=== PATIENT | female | born 1985 | race African-American/Black ===

== ENCOUNTER 2016-11-21 10:36 | Day surgery (SDC) | payer BC ==
[~2016-11-21 10:36] MED LIST: BUPIVACAINE-EPI 0.5%-1:200000 50 ML VIAL. ONE; HYDROmorphone 2 MG/ML VIAL IV PRN; IV RINGERS,LACTATED 1000ML 1,000 ML IV SCH; LIDOCAINE 1% PF 2 ML VIAL. ID PRN; LIDOCAINE 2% PF Vial for OR 5 ML VIAL. ONE; MORPHINE SULFATE 2 MG/ML DISP.SYRIN. IV PRN; ONDANSETRON PF 4 MG/2 ML VIAL. IV PRN; PROCHLORPERAZINE 10 MG/2 ML VIAL. IV PRN; PROPOFOL 20 ML IV ONE; fentaNYL PF VIAL 100 MCG/2 ML VIAL IV PRN
[2016-11-21] MEDS ORDERED: LAMO25TA PO (11:01)
[2016-11-21] MEDS ORDERED: IBUP-1027 PO (11:05)
[2016-11-21 11:20] LABS: NEG OBC UR NEG; POS OBC UR POS
[2016-11-21] MEDS ORDERED: SEVOFLURANE UP TO 15 MINUTES. IH ONE (12:46)
[2016-11-21] MEDS ORDERED: ONDANSETRON PF 4 MG/2 ML VIAL. ONE (12:46)
[2016-11-21] MEDS ORDERED: DEXAMETHASONE SOD PHOS 20 MG/5 ML VIAL. ONE (12:46)
[2016-11-21] MEDS ORDERED: KETOROLAC 60 MG/2 ML INJ FOR OR. ONE (13:03)
[2016-11-21] MEDS ORDERED: HYDR-971 PO (13:07)
[2016-11-21] MEDS ORDERED: NAPR500T PO (13:07)
--- NOTE | 2016-11-21 13:15 | PDOC ---
BRIEF OPERATIVE NOTE Date: Nov 21, 2016 Pre-Op Diagnosis Cervical dysplasia Post-Op Diagnosis Same Procedure Performed LEEP cone and ecc Surgeon Desiree Anesthesia Type: General Blood Loss 5cc Specimens Obtained Leep cone and ECC Complications None MARIA DE JESUS CHAMPAGNE MD Nov 21, 2016 13:14
[2016-11-21] MEDS ORDERED: HYDROcodone/APAP 5/325MG 1 TAB TABLET PO PRN (13:30)
[2016-11-21 13:40] VITALS: BP 108/77
--- NOTE | 2016-11-21 14:20 | OP ---
DATE OF SURGERY: 11/21/2016 DATE OF SERVICE: 11/21/2016 PREOPERATIVE DIAGNOSIS: Cervical dysplasia. POSTOPERATIVE DIAGNOSIS: Cervical dysplasia. PROCEDURE: LEEP/cone and ECC. SURGEON: Maria De Jesus Ramírez MD DEVELOPMENT ASSOCIATE: None. ANESTHESIA: General. ESTIMATED BLOOD LOSS: 5 mL. FLUIDS: Crystalloid. SPECIMENS: LEEP/cone and endocervical curettings. COMPLICATIONS: None. CONDITION: Stable. DESCRIPTION OF PROCEDURE: Risks, benefits, indications, alternatives discussed in detail with the patient. The patient brought to the OR theater, placed in dorsal lithotomy position in Santhosh stirrups. After adequate general anesthesia, the patient was prepped and draped in usual sterile manner. Bilateral speculum was placed in the vaginal vault. Cervix was identified. Appropriate, LEEP/cone device was obtained. ECC was performed, placed on Telfa sponge and handed off the operative field. LEEP/cone was performed in the usual manner. There was some excoriation of the left lateral fornix of the vaginal vault secondary to the device, but this was hemostatic and superficial. The LEEP/cone was obtained and the base and the edges of the LEEP on the remaining cervix was fulgurated with Bovie cautery. Good hemostasis was assured. The LEEP/cone had already been sent off the operative field. The procedure was terminated. Vaginal vault was wiped clean and good hemostasis was assured. Procedure was terminated. Sponge, needle and instrument counts were correct x2 per nurse. The patient went to postop anesthesia recovery in stable condition. MARIA DE JESUS RAMÍREZ MD DR: MAK/nts JOB#: [id number] / [id number]
== END 2016-11-21 14:16 | disposition home or self-care (01) ==
LOC: SURG 10:36
PROVIDERS: ATTEND Specialist
DX: N87.9 Dysplasia of cervix uteri, unspecified (principal); J45.909 Unspecified asthma, uncomplicated; F41.9 Anxiety disorder, unspecified; F32.9 Major depressive disorder, single episode, unspecified; D64.9 Anemia, unspecified; Z72.89 Other problems related to lifestyle; Z72.0 Tobacco use
CPT/HCPCS: 57522; 81025; J1100; J1885; J2405; J2704; J3010; J2001

== ENCOUNTER 2018-07-10 01:08 | Inpatient (IN) | payer BC ==
[~2018-07-10] VITALS: Ht 167.6 cm; Wt 72.1 kg
[~2018-07-10 01:08] MED LIST changes: -BUPIVACAINE-EPI 0.5%-1:200000 50 ML VIAL. ONE; +HYDR-3164 PO; -HYDROmorphone 2 MG/ML VIAL IV PRN; +IBUP-1027 PO; -IV RINGERS,LACTATED 1000ML 1,000 ML IV SCH; +LAMO25TA9 PO; -LIDOCAINE 1% PF 2 ML VIAL. ID PRN; -LIDOCAINE 2% PF Vial for OR 5 ML VIAL. ONE; -MORPHINE SULFATE 2 MG/ML DISP.SYRIN. IV PRN; +NAPR-683 PO; -ONDANSETRON PF 4 MG/2 ML VIAL. IV PRN; -PROCHLORPERAZINE 10 MG/2 ML VIAL. IV PRN; -PROPOFOL 20 ML IV ONE; -fentaNYL PF VIAL 100 MCG/2 ML VIAL IV PRN
[2018-07-10 01:42] LABS: BILIRUBIN,URINE NEGATIVE (NEG); CLARITY,URINE CLOUDY; COLOR,URINE YELLOW; NITRITE,URINE NEGATIVE (NEG); PROTEIN,URINE NEGATIVE (NEG-TRACE); UROBILINOGEN,URINE 0.2 mg/dL (0.2 mg/dL)
[2018-07-10 01:45] LABS: BARBITURATES NEG (NEG); BENZODIAZEPINES NEG (NEG); CANNABINOIDS NEG (NEG); COCAINE NEG (NEG); METHADONE NEG (NEG); OPIATES NEG (NEG); PHENCYCLIDINE NEG (NEG)
[2018-07-10 01:46] LABS: AMPHETAMINE/METHAMPHETAMINE NEG (NEG)
[2018-07-10 01:54] LABS: BACTERIA,URINE FEW /HPF (0-FEW); RBC,URINE OCC /HPF (0-2); SQUAMOUS EPITHELIAL CELL,UR MOD /LPF
[2018-07-10 01:57] VITALS: BP 117/75
[2018-07-10] MEDS ORDERED: 0.9 % SODIUM CHLORIDE 10 ML DISP.SYRIN. IV PRN ×2 (02:00→12:30)
[2018-07-10] MEDS ORDERED: BUTORPHANOL 2 MG/ML VIAL. IV PRN ×2 (02:00)
[2018-07-10] MEDS ORDERED: OXYTOCIN 30 UNIT/500 ML PREMIX 500 ML IV PRN ×2 (02:00→12:30)
[2018-07-10] MEDS ORDERED: LIDOCAINE 1% PF 30 ML VIAL. INJ PRN (02:00)
[2018-07-10] MEDS ORDERED: ONDANSETRON PF 4 MG/2 ML VIAL. IV PRN ×2 (02:00→03:30)
[2018-07-10] MEDS ORDERED: CITRIC ACID/SODIUM CITRATE 30 ML SOLUTION. PO PRN (02:00)
[2018-07-10] MEDS ORDERED: IV RINGERS,LACTATED 1000ML 1,000 ML IV PRN (02:00)
[2018-07-10] MEDS ORDERED: IBUPROFEN 400 MG TABLET. PO PRN ×2 (02:00→12:30)
[2018-07-10] MEDS ORDERED: fentaNYL PF VIAL 100 MCG/2 ML VIAL IV PRN (02:00)
[2018-07-10] MEDS ORDERED: TERBUTALINE 1 MG/ML VIAL. SQ PRN (02:00)
[2018-07-10] MEDS ORDERED: MAG HYDROX/ALUMINUM HYD/SIMETH 30 ML ORAL.SUSP PO PRN ×2 (02:00→12:30)
[2018-07-10] MEDS: IV RINGERS,LACTATED 1000ML 1,000 ML IV SCH ×4 (02:05→09:07)
[2018-07-10 02:16] LABS: BASO # 0.1 x10^3/uL (0.0-0.2); BASO % 1 % (0-3); EOS # 0.3 x10^3/uL (0.0-0.7); EOS % 2 % (0-3); HEMATOCRIT 30.4 % (36.0-47.0); LYMPH % 16 % (24-48); MEAN CORPUSCULAR HEMOGLOBIN 26 pg (25-35); MEAN CORPUSCULAR HGB CONC 33 g/dL (31-37); MEAN CORPUSCULAR VOLUME 79 fL (79-100); MONO # 1.2 x10^3/uL (0.0-1.1); MONO % 9 % (0-9); NEUT # 9.3 x10^3uL (1.8-7.7); NEUT % 72 % (31-73); PLATELET COUNT 276 x10^3/uL (140-400); RED BLOOD COUNT 3.83 x10^6/uL (3.50-5.40); RED CELL DISTRIBUTION WIDTH 12.8 % (11.5-14.5); WHITE BLOOD COUNT 12.9 x10^3/uL (4.0-11.0)
[2018-07-10] MEDS ORDERED: AMPICILLIN SODIUM 2 GM in IV NORMAL SALINE 100ML 100 ML IV ONE (03:00)
[2018-07-10] MEDS ORDERED: IV RINGERS,LACTATED 1000ML 1,000 ML IV SCH (03:27)
[2018-07-10] MEDS ORDERED: PHENYLEPHRINE in 0.9% NACL PF 1 MG/10 ML SYRINGE. IV PRN (03:30)
[2018-07-10] MEDS ORDERED: ATROPINE 0.5 MG/5 ML DISP.SYRINGE. IV PRN (03:30)
[2018-07-10] MEDS ORDERED: fentaNYL PF VIAL 100 MCG/2 ML VIAL EPI PRN (03:30)
[2018-07-10] MEDS ORDERED: NALBUPHINE 10 MG/ML AMPUL. IV PRN (03:30)
[2018-07-10] MEDS ORDERED: ROPIVacaine 0.2% IN 0.9%NACL PF 40 MG/20 ML DISP.SYRIN. EPID PRN (03:30)
[2018-07-10] MEDS ORDERED: IV RINGERS,LACTATED 500ML 500 ML IV PRN (03:30)
[2018-07-10] MEDS ORDERED: BUPIVACAINE MPF 0.25% 30 ML VIAL. EPID PRN (03:30)
[2018-07-10] MEDS ORDERED: NALOXONE 0.4 MG/ML VIAL. IV PRN (03:30)
[2018-07-10] MEDS ORDERED: PROCHLORPERAZINE 10 MG/2 ML VIAL. IV PRN (03:30)
[2018-07-10] MEDS ORDERED: ePHEDrine PF IN SALINE 50 MG/10 ML SYRINGE. IV PRN (03:30)
[2018-07-10] MEDS ORDERED: diphenhydrAMINE 50 MG/ML VIAL IV PRN (03:30)
[2018-07-10] MEDS: L&D EPIDURAL SYRINGE 50 ML EPID PRN ×3 (03:58→10:39)
[2018-07-10] MEDS ORDERED: AMPICILLIN SODIUM 1 GM in IV NORMAL SALINE 50ML 50 ML IV SCH (07:00)
--- NOTE | 2018-07-10 12:21 | PDOC ---
VAGINAL DELIVERY DATE DATE: 07/10/18 TIME: 12:19 : 4 Para: 2 EDC: July 17, 2018 VAGINAL DELIVERY: VTX VACCUM ASSISTED: No PLACENTA: Spontaneous SEX: Female WEIGHT 2745 gm Nuchal Cord: No Amniotic Fluid: Clear PAIN: Epidural EPISIOTOMY: No EXTENSION: No EBL 300cc COMPLICATIONS None CONDITION Stable Signs of Intrauterine Infectio: None Shoulder Dystocia: No DIAGNOSIS MARIA DE JESUS Singh MD July 10, 2018 12:20
--- NOTE | 2018-07-10 12:23 | PDOC1 ---
OB - History Hx of Present Care: Good Care Ultrasounds: Normal mid trimester US Obstetrical Complications: None Medical Complications: None Past Family/Social History * Past Medical, Surgical, Family and Obstetric Histories reviewed from chart. Rubella: Immune RPR/VDRL: Negative HBsAG: Negative OB - Chief Complaint & HPI Date of Admission: Date of Admission: July 10, 2018 at 01:08 Chief Complaint/History : 4 Para: 2 EDC: July 17, 2018 Reason for admission: active labor Admission Nurse Assessment Rev: Yes OB - Admission Exam Physical Exam Vitals: VS - Last 72 Hours, by Label Date Time Temp Pulse Resp B/P (MAP) Pulse Ox O2 Delivery O2 Flow Rate FiO2 07/10/18 10:39 16 99 Room Air 07/10/18 07:20 16 99 Room Air 07/10/18 03:59 20 99 07/10/18 03:58 20 98 07/10/18 02:13 18 100 Room Air 07/10/18 01:57 104 18 117/75 (89) Room Air HEENT: Normal, Nasal Mucosa Normal, Oropharynx Normal, Moist Membranes, Fontanelles Normal Heart: Normal S1 Lungs: Clear, Equal Abdomen: Gravid Extremities: Normal Pulses, No tenderness or swelling Reflexes: Normal Effacement: 50% Station: Ballotable Amniotic Fluid: Clear Heart Rate: Normal Accelerations: Accelerations Present Short Term Variability: Present Contractions on Admission: 6-10 Minutes Apart Intensity: Mild Assessment/Plan Assessment/Plan TIUP Labor ACS MARIA DE JESUS CHAMPAGNE MD July 10, 2018 12:23
[2018-07-10] MEDS ORDERED: SIMETHICONE 80 MG TAB.CHEW PO PRN (12:30)
[2018-07-10] MEDS ORDERED: ACETAMINOPHEN 325 MG TABLET. PO PRN (12:30)
[2018-07-10] MEDS ORDERED: BENZOCAINE 20% TOPICAL AEROSOL SPRAY 57GM CAN. TP PRN (12:30)
[2018-07-10] MEDS ORDERED: HYDROCORTISONE 1% TOPICAL OINTMENT 30GM TUBE. TP PRN (12:30)
[2018-07-10] MEDS ORDERED: ZOLPIDEM 5 MG TABLET. PO PRN (12:30)
[2018-07-10] MEDS ORDERED: MAGNESIUM HYDROXIDE 2,400 MG/30 ML ORAL.SUSP. PO PRN (12:30)
[2018-07-10] MEDS ORDERED: PHENYLEPH/MINERAL OIL/PETROLAT RECTAL OINTMENT 28GM TUBE. RC PRN (12:30)
[2018-07-10] MEDS ORDERED: diphenhydrAMINE HCL 25 MG CAPSULE PO PRN (12:30)
[2018-07-10 15:18] VITALS: BP 112/80
[2018-07-10] MEDS ORDERED: FERROUS SULFATE 325 MG TABLET. PO SCH (17:00)
[2018-07-10] MEDS: IBUPROFEN 400 MG TABLET. PO SCH (19:58)
[2018-07-10 20:16] VITALS: BP 121/61
[2018-07-10] MEDS: ACETAMINOPHEN 325 MG TABLET. PO PRN (21:37)
[2018-07-11 02:30] VITALS: BP 104/60
[2018-07-11] MEDS: IBUPROFEN 400 MG TABLET. PO SCH ×2 (08:14→23:18)
[2018-07-11 12:15] VITALS: BP 106/67
--- NOTE | 2018-07-11 13:01 | PDOC ---
Provider Note Provider Note Doing well VSS Uterus NTTP FU in AM after tubal MARIA DE JESUS CHAMPAGNE MD July 11, 2018 13:01
[2018-07-11 18:03] VITALS: BP 109/69
[2018-07-11] MEDS ORDERED: FERROUS SULFATE 325 MG TABLET. PO SCH (21:00)
[2018-07-11 23:06] VITALS: BP 110/74
[2018-07-12] VITALS (8 sets, daily range): BP systolic 104–134; BP diastolic 66–78
[2018-07-12] MEDS: IBUPROFEN 400 MG TABLET. PO SCH ×2 (06:00→17:13)
[2018-07-12] MEDS ORDERED: BUPIVAC MPF-EPI 0.5%-1:200000 30 ML VIAL. ONE (06:09)
[2018-07-12] MEDS ORDERED: ONDANSETRON PF 4 MG/2 ML VIAL. IV PRN (07:00)
[2018-07-12] MEDS ORDERED: IPRATRPIUM/ALBUTEROL 0.5/2.5MG 3 ML NEBU. NEB ONE (07:00)
[2018-07-12] MEDS ORDERED: PROCHLORPERAZINE 10 MG/2 ML VIAL. IV PRN (07:00)
[2018-07-12] MEDS ORDERED: LIDOCAINE 1% PF 2 ML VIAL. ID PRN (07:00)
[2018-07-12] MEDS ORDERED: MORPHINE SULFATE 2 MG/ML VIAL. IV PRN (07:00)
[2018-07-12] MEDS ORDERED: IV RINGERS,LACTATED 1000ML 1,000 ML IV SCH (07:00)
[2018-07-12] MEDS ORDERED: HYDROmorphone 2 MG/ML VIAL IV PRN (07:00)
[2018-07-12] MEDS ORDERED: fentaNYL PF VIAL 100 MCG/2 ML VIAL IV PRN (07:00)
[2018-07-12] MEDS ORDERED: ROCURONIUM 50 MG/5 ML VIAL. ONE (07:05)
[2018-07-12] MEDS ORDERED: ONDANSETRON PF 4 MG/2 ML VIAL. ONE (07:05)
[2018-07-12] MEDS ORDERED: DEXAMETHASONE SOD PHOS 4 MG/ML VIAL ONE (07:05)
[2018-07-12] MEDS ORDERED: PROPOFOL 20 ML IV ONE (07:05)
[2018-07-12] MEDS ORDERED: LIDOCAINE 2% PF 5 ML VIAL. ONE (07:05)
--- NOTE | 2018-07-12 07:32 | NUR ---
Patient to surgery per bed. No visitors with patient at this time. Has been up for shower, oral care. Patient denies pain at this time. Patient related that her bleeding is less than it has been.
[2018-07-12] MEDS ORDERED: fentaNYL PF VIAL 100 MCG/2 ML VIAL ONE (08:15)
[2018-07-12] MEDS ORDERED: NEOSTIGMINE METHYLSULFATE 5 MG/5 ML SYRINGE. ONE (08:54)
[2018-07-12] MEDS ORDERED: GLYCOPYRROLATE 1 MG/5 ML VIAL. ONE (08:54)
--- NOTE | 2018-07-12 09:09 | PDOC ---
BRIEF OPERATIVE NOTE Pre-Op Diagnosis multiparous desires permanent sterilization Post-Op Diagnosis Same Procedure Performed PPBTL Surgeon Desiree Substitute Crossing Guard None Anesthesia Type: General Blood Loss 15cc Specimens Obtained R and L ova ducts Complications None MARIA DE JESUS CHAMPAGNE MD July 12, 2018 09:09
[2018-07-12] MEDS ORDERED: SEVOFLURANE 31 TO 60 MINUTES. IH ONE (09:10)
--- NOTE | 2018-07-12 09:10 | PDOC3 ---
OB DISCHARGE SUMMARY DATE OF ADMISSION: 07/10/18 DATE OF DISCHARGE: 07/12/18 REASON FOR ADMISSION: Onset of labor PROCEDURES: Ultrasound INTRAPARTUM PROCEDURES: Tubal Ligation PROCEDURES: None OPERATIONS: None DISCHARGE DIAGNOSIS: Term Delivered DISCHARGE INFORMATION: Activity, Diet HOSPITAL COURSE Unremarkable CONDITION AT DISCHARGE Stable MARIA DE JESUS CHAMPAGNE MD July 12, 2018 09:10
[2018-07-12] MEDS ORDERED: NAPR-514 PO (09:13)
[2018-07-12] MEDS ORDERED: OXYC1TAB15 PO (09:13)
[2018-07-12] MEDS: fentaNYL PF VIAL 100 MCG/2 ML VIAL IV PRN ×2 (09:16→09:39)
--- NOTE | 2018-07-12 09:32 | OP ---
DATE OF SURGERY: 07/12/2018 PREOPERATIVE DIAGNOSIS: Multiparous, desires permanent sterilization. POSTOPERATIVE DIAGNOSIS: Multiparous, desires permanent sterilization. PROCEDURE: bilateral tubal ligation. SURGEON: Maria De Jesus Ramírez M.D. FERN GATHERER: None. ANESTHESIA: General. ESTIMATED BLOOD LOSS: 15 mL. FLUIDS: Crystalloid. SPECIMENS: Right and left oviducts. COMPLICATIONS: None. CONDITION: Stable. DESCRIPTION of the PROCEDURE: Risks, benefits, indications, alternatives and expectations discussed in detail with the patient. The patient brought to OR theater, placed in the supine position. After adequate general anesthesia, the patient was prepped and draped in usual sterile manner. A transverse incision was made sharply with a scalpel, carried down to skin, subcutaneous tissue. Fascia was identified and entered sharply with a scalpel secondary to the patient's body habitus. Peritoneum was entered at the same time. Retractors were placed within the incision. The patient was placed in the Trendelenburg, and incision was first manipulated over the left cornu. Tube was identified, followed to its fimbriated end. A relatively avascular portion in the mesosalpinx was identified. A window was created, 2-0 plain ties were used to double ligate the tube approximately 2 cm apart. Tube was transected from these ligatures and ends were burned. Tube was allowed to fall back into its abdominal location. The same procedure was carried out on the opposite side. The fascia was reapproximated with 0 Vicryl in a running manner. Skin was reapproximated with 4-0 Monocryl in subcuticular fashion. The incision was infiltrated with 0.5% Marcaine with epinephrine. Sponge, needle and instrument counts were correct x 2 per nursing staff. MARIA DE JESUS RAMÍREZ MD DR: MAK/robin JOB#: [id number] / [id number]
--- NOTE | 2018-07-12 10:00 | NUR ---
Patient returned to room from PACU. Patient alert and oriented, slightly drowsy. No visitors with patient at this time. Abd dressing D&I, without shadowing noted.
[2018-07-12] MEDS: ACETAMINOPHEN 325 MG TABLET. PO PRN (15:44)
--- NOTE | 2018-07-12 17:35 | NUR ---
Patient was discharged home to [facility] with , escorted to vehicle by Fawn PANG. Belongings in room taken with patient with exception of "lip" ring, for which patient was called on her cellphone. Patient instructed nurse to throw it away as she had another one. Patient verbalized understanding of discharge instructions, including, but not limited to diet, medication, activity, incision care, and follow up. Patient has also verbalized understanding of care of her .
--- NOTE | 2018-07-15 15:06 | PATHOLOGY ---
[facility] Accession Number: [id number] . 01 Material submitted: . PART A: fallopian tube - RIGHT FALLOPIAN TUBE. Modifiers: right PART B: fallopian tube - LEFT FALLOPIAN TUBE. Modifiers: left . 01 Clinical history: . None provided . 02 Diagnosis: A. Fallopian tube, right tubal ligation: - Segment of fallopian tube confirmed. . B. Fallopian tube, left tubal ligation: - Segment of fallopian tube confirmed. (JPM/db; 07/15/2018) LBQ/07/15/2018 . 02 Electronically signed: . Tobi Mullen MD, Pathologist NPI- [id number] . 01 Gross description: . A. The specimen is received in formalin, labeled "Sabas, Yenny, right fallopian tube" and consists of a nonfimbriated segment of carmen-romero fallopian tube measuring 1.5 cm in length and 0.4 cm in diameter. Sectioning reveals a well-defined central lumen and the specimen is entirely submitted in A1. . B. The specimen is received in formalin, labeled "Sabas, Yenny, left fallopian tube" and consists of a nonfimbriated segment of pink-romero fallopian tube measuring 1.9 cm in length and 0.4 cm in diameter. Sectioning reveals a well-defined lumen and the specimen is entirely submitted in B1. (SDY; 07/14/2018) SYU/SYU . 02 Pathologist provided ICD-10: Z30.2 . 02 CPT . 258687, [id number] Specimen Comment: A courtesy copy of this report has been sent to Specimen Comment: [phone]. Specimen Comment: Report sent to Performed at: [id number] [facility] [address], [place], [place] [id number] MD Jermaine Mejia MD Phone: [phone] Performed at: [address] [id number] MD Tobi Mullen MD Phone: [phone]
== END 2018-07-12 17:35 | disposition home or self-care (01) | DRG 798 ==
LOC: OBSVTOIN 01:08 → 3 SO LND 01:08 → 3 NORTH 14:16
PROVIDERS: ADMIT Specialist; ATTEND Specialist
PROC: 10E0XZZ Delivery of Products of Conception, External Approach (ICD-10-PCS; principal; 2018-07-10)
PROC: 00HU33Z Insertion of Infusion Device into Spinal Canal, Percutaneous Approach (ICD-10-PCS; 2018-07-10)
PROC: 3E0R3BZ Introduction of Anesthetic Agent into Spinal Canal, Percutaneous Approach (ICD-10-PCS; 2018-07-10)
PROC: 0UB70ZZ Excision of Bilateral Fallopian Tubes, Open Approach (ICD-10-PCS; 2018-07-12)
DX: O80 Encounter for full-term uncomplicated delivery (principal); Z37.0 Single live birth; Z30.2 Encounter for sterilization; Z3A.39 39 weeks gestation of pregnancy
CPT/HCPCS: 36415; 80307; 81001; 85014; 85025; 86592; 86850; 86900; 86901; 87086; 88302; 94640; 94760; A7015; J0290; J0780; J1100; J2001; J2405; J2590; J2704; J2710; J3010; J3490; J7120; J7620